=== PATIENT | female | born 1990 | race African-American/Black ===

== ENCOUNTER 2017-02-22 21:48 | Emergency (ER) | payer OTHER ==
[~2017-02-22] VITALS: Ht 167.6 cm; Wt 112.0 kg
[~2017-02-22 21:48] MED LIST: BACTRIM,SEPT1 TABLET PO; MOTRIN800 MG PO; NOHOMEMEDS; NORCO 5/3251 TABLET PO; NORCO 7.5/321 TABLET PO; ZANTAC150 MG PO; ZOFRAN4 MG PO
[2017-02-22 22:20] LABS: HEMATOCRIT 36.9 % (36.0-46.0); MCH 29.1 PG (29.0-34.0); MCHC 33.9 G/DL (30.0-36.0); RBC DIS.WIDTH-CV 11.6 % (11.8-14.6); RBC DIS.WIDTH-SD 36.3 % (39-53); RED BLOOD COUNT 4.29 M/uL (3.80-5.20); WHITE BLOOD COUNT 7.9 K/uL (4.1-10.2)
[2017-02-22 22:29] LABS: CHLORIDE 105 mEq/L (99-109); POTASSIUM 3.6 mEq/L (3.7-5.4); SODIUM 140 mEq/L (136-147)
[2017-02-22 22:31] LABS: GLUCOSE 78 mg/dL (70-99)
[2017-02-22 22:33] LABS: ANION GAP 11 MEQ/L (2-14)
[2017-02-22 22:35] LABS: GFR ESTIMATE (CALCULATED) > 59 mL/min/
[2017-02-22 22:36] LABS: UREA NITROGEN (BUN) 10 mg/dL (9-23)
[2017-02-22 22:46] LABS: QUANTITATIVE HCG < 4.0 MIU/ML
[2017-02-22 22:55] LABS: IMM.PLATELET FRACTION 17.1 (1-7); PLATELET COUNT 44 K/uL (156-360)
[2017-02-22 22:58] LABS: PLATELET CLUMPS 1+
[2017-02-22 23:01] LABS: ADD MIUA? YES; BILIRUBIN NEGATIVE; BLOOD NEGATIVE; COLOR YELLOW ((YELLOW)); GLUCOSE (STRIP) NEGATIVE; KETONES NEGATIVE; LEUKOCYTES NEGATIVE; NITRITE NEGATIVE; PROTEIN (STRIP) NEGATIVE; UROBILINOGEN 0.2 MG/DL (0.2-1.0)
[2017-02-22 23:08] LABS: BACTERIA NONE SEEN /HPF; EPITHELIAL CELLS 1+ /HPF; MUCUS TRACE /LPF; RED BLOOD CELLS 0-5 /HPF (0-5); UCUL ADDED? NO; WHITE BLOOD CELLS 0-5 /HPF (0-5)
[2017-02-23 01:50] LABS: EOSINOPHIL (%) 2.3 % (0-5); EOSINOPHIL COUNT 0.2 K/uL (0-0.3); HEMATOCRIT 35.7 % (36.0-46.0); IMMATURE GRANULOCYTE (%) 0.1 % (0.0-0.7); INSTRUMENT ABS NEUTROPHIL CT 4.5 K/uL; LYMPHOCYTE COUNT 2.7 K/uL (1.0-2.8); MCHC 33.3 G/DL (30.0-36.0); MCV 86.9 FL (83-99); MONOCYTE (%) 6.7 % (3-12); MONOCYTE COUNT 0.5 K/uL (0-0.8); NEUTROPHIL (%) 56.6 % (45-76); NEUTROPHIL COUNT 4.5 K/uL (1.8-6.4); RBC DIS.WIDTH-CV 11.6 % (11.8-14.6); RBC DIS.WIDTH-SD 37.2 % (39-53); RED BLOOD COUNT 4.11 M/uL (3.80-5.20); WHITE BLOOD COUNT 7.9 K/uL (4.1-10.2)
[2017-02-23 02:29] LABS: INTERNAL CONTROL VALID? YES; MONOSPOT (MONONUCLEOSIS SEROL) NEGATIVE
[2017-02-23 02:41] LABS: IMM.PLATELET FRACTION 8.8 (1-7); MEAN PLAT.VOLUME 11.2 uM^3 (9.5-12.4); PLATELET COUNT 35 K/uL (156-360)
[2017-02-23 03:46] VITALS: BP 121/80
== END 2017-02-23 03:48 | disposition home or self-care (01) ==
LOC: EME 21:48
PROVIDERS: Physician Assistant
DX: R10.9 Unspecified abdominal pain (principal); M54.5 Low back pain; D69.6 Thrombocytopenia, unspecified; Z87.440 Personal history of urinary (tract) infections; Z83.2 Family history of diseases of the blood and blood-forming organs and certain disorders involving the immune mechanism; F17.200 Nicotine dependence, unspecified, uncomplicated
CPT/HCPCS: 74177; 80048; 81003; 84702; 85025; 85027; 86308; 99281; 99285; J7030